=== PATIENT | male | born 1990 | race African-American/Black ===

== ENCOUNTER 2017-07-13 01:44 | Emergency (ER) | payer SELFPAY ==
[2017-07-13] MEDS ORDERED: Loperamide HCl 2 MG CAP ONE (02:09)
== END 2017-07-13 02:15 | disposition home or self-care (01) ==
LOC: ERS 01:44
DX: R19.7 Diarrhea, unspecified (principal); R11.2 Nausea with vomiting, unspecified; J45.909 Unspecified asthma, uncomplicated; F98.8 Other specified behavioral and emotional disorders with onset usually occurring in childhood and adolescence; F17.210 Nicotine dependence, cigarettes, uncomplicated
CPT/HCPCS: 99406

== ENCOUNTER 2017-07-20 16:27 | Emergency (ER) | payer SELFPAY | END 2017-07-20 17:53 | disposition left against medical advice (07) | LOC: ERS 16:27 | DX: R11.2 Nausea with vomiting, unspecified (principal); R19.7 Diarrhea, unspecified; J45.909 Unspecified asthma, uncomplicated; F90.9 Attention-deficit hyperactivity disorder, unspecified type; F17.210 Nicotine dependence, cigarettes, uncomplicated | CPT/HCPCS: 99283 ==

== ENCOUNTER 2017-08-12 21:08 | Emergency (ER) | payer SELFPAY | END 2017-08-12 21:14 | disposition left against medical advice (07) | LOC: ERS 21:08 | DX: Z53.21 Procedure and treatment not carried out due to patient leaving prior to being seen by health care provider (principal) ==

== ENCOUNTER 2018-02-03 21:29 | Emergency (ER) | payer OTHER, SELFPAY ==
[2018-02-03] MEDS ORDERED: Ketorolac Tromethamine 30 MG/ML VIAL ONE (22:22)
== END 2018-02-03 22:45 | disposition home or self-care (01) ==
LOC: ERS 21:29
DX: M25.511 Pain in right shoulder (principal); J45.909 Unspecified asthma, uncomplicated; F90.9 Attention-deficit hyperactivity disorder, unspecified type; F17.210 Nicotine dependence, cigarettes, uncomplicated; X50.0XXA Overexertion from strenuous movement or load, initial encounter
CPT/HCPCS: 96372; J1885

== ENCOUNTER 2018-03-04 21:14 | Emergency (ER) | payer SELFPAY ==
--- NOTE | 2018-03-04 22:30 | RAD ---
RIGHT SHOULDER TWO VIEWS: 03/04/18 HISTORY: Shoulder pain. COMPARISON: 12/12/12 study. There is evidence of a previous AC dislocation. There is some ossification in the region of the AC harpal int still with minimal off-set at the AC joint. The glenohumeral joint is unremarkable. IMPRESSION: Old appearing AC joint injury. POS: [facility]
== END 2018-03-04 23:20 | disposition home or self-care (01) ==
LOC: ERS 21:14
DX: S43.101A Unspecified dislocation of right acromioclavicular joint, initial encounter (principal); S43.431A Superior glenoid labrum lesion of right shoulder, initial encounter; J45.909 Unspecified asthma, uncomplicated; F17.210 Nicotine dependence, cigarettes, uncomplicated; X58.XXXA Exposure to other specified factors, initial encounter

== ENCOUNTER 2018-06-16 22:44 | Emergency (ER) | payer SELFPAY ==
[2018-06-16] MEDS ORDERED: Bupivacaine 0.5% 10 ML VIAL ONE (23:20)
== END 2018-06-16 23:35 | disposition home or self-care (01) ==
LOC: ERS 22:44
DX: S03.2XXA Dislocation of tooth, initial encounter (principal); J45.909 Unspecified asthma, uncomplicated; F17.210 Nicotine dependence, cigarettes, uncomplicated; X58.XXXA Exposure to other specified factors, initial encounter
CPT/HCPCS: 99282; J3490

== ENCOUNTER 2021-02-25 20:48 | Emergency (ER) | payer SELFPAY | END 2021-02-25 23:26 | disposition home or self-care (01) | LOC: ERS 20:48 | DX: J02.9 Acute pharyngitis, unspecified (principal); J45.909 Unspecified asthma, uncomplicated | CPT/HCPCS: 87081; 87430; 99283 ==

== ENCOUNTER 2021-04-24 21:12 | Emergency (ER) | payer SELFPAY | END 2021-04-25 00:07 | disposition home or self-care (01) | LOC: ERS 21:12 | DX: R11.10 Vomiting, unspecified (principal); J45.909 Unspecified asthma, uncomplicated; F17.210 Nicotine dependence, cigarettes, uncomplicated | CPT/HCPCS: 99281 ==

== ENCOUNTER 2021-05-03 22:56 | Emergency (ER) | payer SELFPAY ==
[2021-05-04 18:38] LABS: SARS-CoV-2 PCR by NAA Not Detected (NotDetected)
== END 2021-05-03 23:32 | disposition home or self-care (01) ==
LOC: ERS 22:56
DX: J45.909 Unspecified asthma, uncomplicated (principal); F17.200 Nicotine dependence, unspecified, uncomplicated; Z20.822 Contact with and (suspected) exposure to COVID-19
CPT/HCPCS: 99281; U0003; U0005

== ENCOUNTER 2021-05-16 19:11 | Emergency (ER) | payer SELFPAY | END 2021-05-16 22:42 | disposition home or self-care (01) | LOC: ERS 19:11 | DX: H93.8X1 Other specified disorders of right ear (principal); J45.909 Unspecified asthma, uncomplicated; F17.200 Nicotine dependence, unspecified, uncomplicated | CPT/HCPCS: 99282 ==

== ENCOUNTER 2021-05-21 22:02 | Emergency (ER) | payer SELFPAY | END 2021-05-21 22:45 | disposition home or self-care (01) | LOC: ERS 22:02 | DX: R11.2 Nausea with vomiting, unspecified (principal); F17.290 Nicotine dependence, other tobacco product, uncomplicated | CPT/HCPCS: 99283 ==

== ENCOUNTER 2021-05-26 20:34 | Emergency (ER) | payer SELFPAY ==
[2021-05-26] MEDS ORDERED: Fluorescein Opthalmic Strip ONE (21:12)
[2021-05-26] MEDS ORDERED: Proparacaine 0.5% Opth 15 ML BOT ONE (21:12)
== END 2021-05-26 21:44 | disposition home or self-care (01) ==
LOC: ERS 20:34
DX: S05.01XA Injury of conjunctiva and corneal abrasion without foreign body, right eye, initial encounter (principal); J45.909 Unspecified asthma, uncomplicated; F17.290 Nicotine dependence, other tobacco product, uncomplicated
CPT/HCPCS: 99283

== ENCOUNTER 2021-06-10 21:33 | Emergency (ER) | payer SELFPAY | END 2021-06-10 22:30 | disposition home or self-care (01) | LOC: ERS 21:33 | DX: M77.8 Other enthesopathies, not elsewhere classified (principal); M79.641 Pain in right hand; J45.909 Unspecified asthma, uncomplicated; F17.290 Nicotine dependence, other tobacco product, uncomplicated | CPT/HCPCS: 99284 ==

== ENCOUNTER 2021-07-10 23:20 | Emergency (ER) | payer SELFPAY | END 2021-07-10 23:43 | disposition home or self-care (01) | LOC: ERS 23:20 | DX: R11.10 Vomiting, unspecified (principal); R19.7 Diarrhea, unspecified; F17.290 Nicotine dependence, other tobacco product, uncomplicated | CPT/HCPCS: 99281 ==

== ENCOUNTER 2021-07-21 23:27 | Emergency (ER) | payer SELFPAY ==
[2021-07-22 13:10] LABS: SARS-CoV-2 PCR by NAA Not Detected (NotDetected)
== END 2021-07-21 23:55 | disposition home or self-care (01) ==
LOC: ERS 23:27
DX: B34.9 Viral infection, unspecified (principal); J45.909 Unspecified asthma, uncomplicated; F17.290 Nicotine dependence, other tobacco product, uncomplicated; Z20.822 Contact with and (suspected) exposure to COVID-19
CPT/HCPCS: 99283; U0003; U0005

== ENCOUNTER 2021-08-05 21:51 | Emergency (ER) | payer SELFPAY ==
[2021-08-06 14:09] LABS: SARS-CoV-2 PCR by NAA Not Detected (NotDetected)
== END 2021-08-05 23:15 | disposition home or self-care (01) ==
LOC: ERS 21:51
DX: R51.9 Headache, unspecified (principal); J45.909 Unspecified asthma, uncomplicated; F17.290 Nicotine dependence, other tobacco product, uncomplicated; Z20.822 Contact with and (suspected) exposure to COVID-19
CPT/HCPCS: 99284; U0003; U0005

== ENCOUNTER 2021-08-27 21:50 | Emergency (ER) | payer SELFPAY | END 2021-08-27 23:03 | disposition home or self-care (01) | LOC: ERS 21:50 | DX: M65.272 Calcific tendinitis, left ankle and foot (principal); M19.072 Primary osteoarthritis, left ankle and foot; J45.909 Unspecified asthma, uncomplicated; F17.290 Nicotine dependence, other tobacco product, uncomplicated ==

== ENCOUNTER 2021-10-01 22:28 | Emergency (ER) | payer SELFPAY | END 2021-10-02 01:13 | disposition home or self-care (01) | LOC: ERS 22:28 | DX: S61.212A Laceration without foreign body of right middle finger without damage to nail, initial encounter (principal); F17.290 Nicotine dependence, other tobacco product, uncomplicated; W25.XXXA Contact with sharp glass, initial encounter | CPT/HCPCS: 99282 ==

== ENCOUNTER 2021-10-06 22:30 | Emergency (ER) | payer SELFPAY | END 2021-10-06 23:05 | disposition home or self-care (01) | LOC: ERS 22:30 | DX: K52.9 Noninfective gastroenteritis and colitis, unspecified (principal); E73.9 Lactose intolerance, unspecified; Z87.891 Personal history of nicotine dependence | CPT/HCPCS: 99281 ==

== ENCOUNTER 2021-11-13 18:38 | Emergency (ER) | payer SELFPAY ==
[2021-11-13] MEDS ORDERED: Fluorescein Opthalmic Strip ONE (20:23)
[2021-11-13] MEDS ORDERED: Proparacaine 0.5% Opth 15 ML BOT ONE (20:23)
== END 2021-11-13 20:59 | disposition home or self-care (01) ==
LOC: ERS 18:38
DX: S05.02XA Injury of conjunctiva and corneal abrasion without foreign body, left eye, initial encounter (principal); Z87.891 Personal history of nicotine dependence; X58.XXXA Exposure to other specified factors, initial encounter
CPT/HCPCS: 99283

== ENCOUNTER 2021-12-11 18:16 | Emergency (ER) | payer SELFPAY | END 2021-12-11 20:24 | disposition home or self-care (01) | LOC: ERS 18:16 | DX: B34.9 Viral infection, unspecified (principal); F17.210 Nicotine dependence, cigarettes, uncomplicated | CPT/HCPCS: 99283 ==

== ENCOUNTER 2021-12-22 20:48 | Emergency (ER) | payer SELFPAY | END 2021-12-22 21:36 | disposition home or self-care (01) | LOC: ERS 20:48 | DX: R11.2 Nausea with vomiting, unspecified (principal); R19.7 Diarrhea, unspecified; J45.909 Unspecified asthma, uncomplicated; Z87.891 Personal history of nicotine dependence | CPT/HCPCS: 99283 ==

== ENCOUNTER 2022-01-12 23:23 | Emergency (ER) | payer SELFPAY | END 2022-01-13 01:50 | disposition home or self-care (01) | LOC: ERS 23:23 | DX: R11.10 Vomiting, unspecified (principal); J45.909 Unspecified asthma, uncomplicated; Z87.891 Personal history of nicotine dependence | CPT/HCPCS: 99281 ==

== ENCOUNTER 2022-01-28 02:28 | Emergency (ER) | payer SELFPAY | END 2022-01-28 04:05 | disposition home or self-care (01) | LOC: ERS 02:28 | DX: R11.2 Nausea with vomiting, unspecified (principal); R07.89 Other chest pain; J45.909 Unspecified asthma, uncomplicated; Z87.891 Personal history of nicotine dependence | CPT/HCPCS: 93005 ==

== ENCOUNTER 2022-03-29 21:34 | Emergency (ER) | payer SELFPAY ==
[2022-03-29 22:55] LABS: Bilirubin Negative (Negative); Blood, Urine Trace (Negative); Clarity Turbid (Clear); Glucose, Urine (Dipstick) Normal (Negative); Ketone, Urine Negative (Negative); Leukocyte 500 Leu/uL (Negative); Mucous/LPF Rare LPF (<2+); Nitrite Negative (Negative); Protein, Urine (Dipstick) 20 mg/dL (Neg-Trace); Specific Gravity, Urine 1.025 (1.002-1.036); Squamous Epithelial 0-3 HPF (0-3); Urobilinogen Normal mg/dL (Less than 2); WBC/HPF Greater than 50 HPF (0-3)
[2022-03-29 23:01] LABS: Bacteria/HPF 1+ HPF (None Seen)
[2022-03-29] MEDS ORDERED: cefTRIAXone\\ROCEPHIN 500 MG VIAL ONE (23:06)
[2022-03-29] MEDS ORDERED: Lidocaine 1% MPF 2 ML VIAL ONE (23:09)
[2022-03-30 11:25] LABS: Chlam.trachomatis by PCR,Urine DETECTED (NotDetected)
== END 2022-03-29 23:34 | disposition home or self-care (01) ==
LOC: ERS 21:34
DX: N34.2 Other urethritis (principal); F17.290 Nicotine dependence, other tobacco product, uncomplicated
CPT/HCPCS: 81003; 81015; 87086; 87491; 87591; 96372; 99283; J0696